=== PATIENT | female | born 1970 | race African-American/Black ===

== ENCOUNTER 2017-01-19 16:59 | Emergency (ER) | payer MEDICARE, OTHER ==
[~2017-01-19 16:59] MED LIST: ACIDOPHILU2 PEG; ALLEGRA PEG; BAZA TOP; BISR PR; CALCIUM CARBONATE PEG; CETAPHIL CLEANSER TOP; FLONASE NAS; FORTEO SC; GGEXPUD PEG; KCL20UDL PEG; L20 PEG; LAC-HYDRIN TOP; LANSOPRAZOLE 30 MG PEG; METROGEL 0.75% TOP; MICONAZOLE TOP; MOMUD PEG; MULTIVIT/MIN PEG; MYTAB GAS80 MG PEG; NORCO1 TA1 PEG; PATADAY OPH; PHENOBARB32.4 MG PEG; SINGULAIR1 PEG; VISCOUS LIDOCAINE; VITC500 PEG; VITD PEG; XOPENEX1.25 MG/3 INH; ZEASORB POWDER TOP; [UNRECOGNIZED DRUG - OTHER] TOP; [UNRECOGNIZED DRUG - OTHER] TOP
== END 2017-01-19 17:09 | disposition home or self-care (01) ==
LOC: ER 16:59
DX: K94.13 Enterostomy malfunction (principal); R13.10 Dysphagia, unspecified; G47.30 Sleep apnea, unspecified; Z88.2 Allergy status to sulfonamides; Z79.899 Other long term (current) drug therapy
CPT/HCPCS: 49451; 99284; C1769; Q9967